=== PATIENT | female | born 2000 | race Hispanic/Latino ===

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

== ENCOUNTER 2022-07-19 17:57 | Emergency (ER) | payer OTHER ==
[~2022-07-19] VITALS: Ht 162.6 cm; Wt 113.6 kg
[~2022-07-19 17:57] MED LIST changes: +AMOXICILLIN/CL875 MG PO; +DROSPIRENONE PO; +[UNRECOGNIZED DRUG - OTHER] PO
[2022-07-19 18:07] VITALS: BP 126/74
[2022-07-19 18:15] VITALS: BP 117/75
[2022-07-19 18:30] VITALS: BP 113/70
[2022-07-19 19:00] VITALS: BP 107/50
[2022-07-19 19:01] LABS: HEMATOCRIT 37.4 % (37.0-47.0); HEMOGLOBIN 12.7 g/dl (12.0-16.0); IMMATURE GRANULOCYTES 0.5 % (0.0-5.0); MEAN CELL VOLUME 84.2 fL CALC (80.0-100.0); MEAN CORPUSCULAR HGB 28.6 pG CALC (26.0-32.0); NEUT# 3.35 thou/uL (2.00-7.15); RED BLOOD COUNT 4.44 mill/uL (4.20-5.60); RED CELL DISTRI WIDTH 12.2 % (11.5-15.5)
[2022-07-19 19:03] LABS: URINE BILIRUBIN - DIPSTICK NEGATIVE (NEGATIVE); URINE BLOOD DIPSTICK MODERATE (NEGATIVE); URINE COLOR YELLOW; URINE GLUCOSE - DIPSTICK >=1000 mg/dL (NEGATIVE); URINE KETONE NEGATIVE (NEGATIVE); URINE LEUK ESTERASE NEGATIVE (NEGATIVE); URINE PH 5.5 (4.5-8.0); URINE PROTEIN - DIPSTICK NEGATIVE (NEG-TRACE); URINE SPECIFIC GRAVITY >=1.030; URINE UROBILINOGEN - DIPSTICK 0.2 E.U./dL (0.2)
[2022-07-19 19:09] LABS: URINE NITRITE - DIPSTICK NEGATIVE (Negative)
[2022-07-19 19:13] LABS: ALBUMIN 4.2 g/dL (3.2-5.0); ANION GAP 18 (6-22 (CALC)); BILIRUBIN, TOTAL 0.3 mg/dL (0.0-1.4); BUN 13 mg/dL (7-17); BUN/CREATININE RATIO 33 (12-20 (CALC)); CARBON DIOXIDE 23 mmol/l (22-30); CHLORIDE 103 mmol/l (95-108); CREATININE 0.4 mg/dL (0.5-1.0); GFR FOR AFR.AMER. > 60 ML/MIN (>=60 (CALC)); GFR OTHER RACES > 60 ML/MIN (>=60 (CALC)); POTASSIUM 3.7 mmol/l (3.5-5.1); SODIUM 140 mmol/l (137-146); TOTAL PROTEIN 7.6 g/dL (6.3-8.2)
[2022-07-19 19:16] LABS: ALKALINE PHOSPHATASE 101 u/l (38-126); SGOT/AST 101 u/l (14-36)
[2022-07-19 19:19] LABS: URINE SQUAMOUS EPITHELIAL CELL MODERATE EPI/hpf (0-FEW)
[2022-07-19] MEDS ORDERED: NAPROXEN500 MG PO (20:33)
[2022-07-19] MEDS ORDERED: METFORMIN HCL500 M1 PO (20:33)
[2022-07-19 21:31] VITALS: BP 107/50
== END 2022-07-19 21:45 | disposition home or self-care (01) ==
LOC: ED 17:57
PROVIDERS: Internal Medicine; Nurse Practitioner
DX: R51.9 Headache, unspecified (principal); E11.9 Type 2 diabetes mellitus without complications; I10 Essential (primary) hypertension